=== PATIENT | female | born 1965 | race Caucasian/White ===

== ENCOUNTER 2023-02-13 11:56 | Inpatient (IN) | payer BC ==
[2023-02-13] MEDS ORDERED: Iopamidol 755 Mg/ML 100 ML Bottle IVPUSH ONE (12:10)
[2023-02-13 12:29] LABS: BASOPHILS ABSOLUTE AUTO 0.01 10^3/uL (0.00-0.50); BASOPHILS PERCENT AUTO 0.1 % (0-1); EOSINOPHILS ABSOLUTE AUTO 0.02 10^3/uL (0.00-1.50); EOSINOPHILS PERCENT AUTO 0.2 % (0-6); HEMATOCRIT 35.5 % (37.0-47.0); HEMOGLOBIN 12.1 g/dL (12.0-16.0); IMMATURE GRAN ABSOLUTE AUTO 0.03 10^3/uL (0.00-0.49); IMMATURE GRAN PERCENT AUTO 0.3 % (0.0-4.9); LYMPHOCYTES ABSOLUTE AUTO 1.94 10^3/uL (0.60-5.00); LYMPHOCYTES PERCENT AUTO 19.3 % (24-44); MEAN CORPUSCULAR HEMOGLOBIN 31.8 pg (27.0-32.0); MEAN CORPUSCULAR HGB CONC 34.1 g/dL (32.0-36.0); MEAN CORPUSCULAR VOLUME 93.4 fL (83.0-97.0); MONOCYTES ABSOLUTE AUTO 0.87 10^3/uL (0.00-1.50); MONOCYTES PERCENT AUTO 8.6 % (0-10); NEUTROPHILS PERCENT AUTO 71.5 % (41-71); PLATELET COUNT,PLT 268 10^3/uL (150-400); WHITE BLOOD CELL COUNT,WBC 10.1 10^3/uL (4.0-11.0)
[2023-02-13 12:45] LABS: ALANINE AMINOTRANSFERASE,ALT 64 U/L (12-78); ALBUMIN 3.5 g/dL (3.4-5.0); ALKALINE PHOSPHATASE 122 U/L (46-116); ASPARTATE AMNIOTRANSFERASE,AST 26 U/L (15-37); BILIRUBIN TOTAL 0.4 mg/dL (0.0-1.0); BLOOD UREA NITROGEN,BUN 9 mg/dL (7-18); C-REACTIVE PROTEIN 23.94 mg/dL (<=0.50); CALCIUM 8.9 mg/dL (8.4-10.1); CARBON DIOXIDE,CO2 30 mmol/L (21-32); CHLORIDE,CL 100 mEq/L (98-106); CREATININE 0.9 mg/dL (0.6-1.0); ESTIMATED GFR 75 mL/min (>=60); GLUCOSE RANDOM 95 mg/dL (75-99); LACTIC ACID 0.6 mmol/L (0.4-2.0); PROTEIN TOTAL,TP 7.6 g/dL (6.4-8.2); SODIUM,NA 140 mEq/L (136-145)
[2023-02-13] MEDS ORDERED: VANCOmycin 1.5 GM/300 ML 1.5 GM in Premix Bag 1 BAG IV ONE (13:10)
[2023-02-13] MEDS ORDERED: Acetaminophen 325 MG Tab PO PRN (17:18)
[2023-02-13] MEDS ORDERED: Ondansetron 4 MG/2 ML SDV IV PRN (17:18)
[2023-02-13] MEDS ORDERED: Ondansetron 4 MG Tab.DIS PO PRN (17:18)
[2023-02-13] MEDS ORDERED: Sodium Chloride 0.9% 10 ML Syringe FLUSH PRN (17:18)
[2023-02-13] MEDS ORDERED: Cyclobenzaprine 10 MG Tab PO PRN (17:23)
[2023-02-13] MEDS ORDERED: Potassium Chloride 20 MEQ Tab.ER PO ONE (17:25)
[2023-02-13] MEDS: Ibuprofen 200 MG Tab PO PRN (18:07)
[2023-02-14] MEDS: Levothyroxine 100 MCG Tab PO SCH (06:52)
[2023-02-14] MEDS: Ibuprofen 200 MG Tab PO PRN ×3 (06:55→23:40)
[2023-02-14 07:40] LABS: ALBUMIN 3.1 g/dL (3.4-5.0); BILIRUBIN TOTAL 0.3 mg/dL (0.0-1.0); CALCIUM 8.8 mg/dL (8.4-10.1); CREATININE 0.8 mg/dL (0.6-1.0); EST CRCL DRUG DOSING (CG) 64.95 mL/min; MAGNESIUM 2.2 mg/dL (1.8-2.4); POTASSIUM,K 3.4 mEq/L (3.5-5.0); PROTEIN TOTAL,TP 7.2 g/dL (6.4-8.2)
[2023-02-14 07:43] LABS: BASOPHILS ABSOLUTE AUTO 0.03 10^3/uL (0.00-0.50); BASOPHILS PERCENT AUTO 0.3 % (0-1); EOSINOPHILS ABSOLUTE AUTO 0.07 10^3/uL (0.00-1.50); EOSINOPHILS PERCENT AUTO 0.7 % (0-6); HEMATOCRIT 34.5 % (37.0-47.0); HEMOGLOBIN 11.6 g/dL (12.0-16.0); IMMATURE GRAN ABSOLUTE AUTO 0.03 10^3/uL (0.00-0.49); IMMATURE GRAN PERCENT AUTO 0.3 % (0.0-4.9); LYMPHOCYTES ABSOLUTE AUTO 2.14 10^3/uL (0.60-5.00); LYMPHOCYTES PERCENT AUTO 21.6 % (24-44); MEAN CORPUSCULAR HEMOGLOBIN 31.7 pg (27.0-32.0); MEAN CORPUSCULAR HGB CONC 33.6 g/dL (32.0-36.0); MEAN CORPUSCULAR VOLUME 94.3 fL (83.0-97.0); MONOCYTES ABSOLUTE AUTO 0.68 10^3/uL (0.00-1.50); MONOCYTES PERCENT AUTO 6.9 % (0-10); NEUTROPHILS ABSOLUTE AUTO 6.96 x10^3/uL (1.80-8.00); NEUTROPHILS PERCENT AUTO 70.2 % (41-71); PLATELET COUNT,PLT 306 10^3/uL (150-400); RED BLOOD CELL COUNT 3.66 x10^6/uL (4.00-5.50); WHITE BLOOD CELL COUNT,WBC 9.9 10^3/uL (4.0-11.0)
[2023-02-14] MEDS: Hydroxychloroquine 200 MG Tab PO SCH (08:35)
[2023-02-14] MEDS: Topiramate 100 MG Tab PO SCH (08:35)
[2023-02-14] MEDS: Venlafaxine 75 MG Cap.ER PO SCH (08:37)
[2023-02-14] MEDS: atorvaSTATin 20 MG Tab PO SCH (08:39)
[2023-02-14] MEDS: buPROPion 150 MG Tab.ER PO SCH (08:39)
[2023-02-14] MEDS ORDERED: VANCOmycin 1.75 GM/350 ML 1.75 GM in Premix Bag 1 BAG IV SCH (12:00)
[2023-02-15] MEDS: Acetaminophen/HYDROcodone 325-5 MG Tab PO PRN ×3 (02:03→17:03)
[2023-02-15] MEDS: Levothyroxine 100 MCG Tab PO SCH (06:02)
[2023-02-15 07:48] LABS: BASOPHILS ABSOLUTE AUTO 0.04 10^3/uL (0.00-0.50); BASOPHILS PERCENT AUTO 0.5 % (0-1); EOSINOPHILS ABSOLUTE AUTO 0.22 10^3/uL (0.00-1.50); EOSINOPHILS PERCENT AUTO 2.9 % (0-6); HEMATOCRIT 34.2 % (37.0-47.0); HEMOGLOBIN 11.3 g/dL (12.0-16.0); IMMATURE GRAN ABSOLUTE AUTO 0.05 10^3/uL (0.00-0.49); IMMATURE GRAN PERCENT AUTO 0.7 % (0.0-4.9); LYMPHOCYTES ABSOLUTE AUTO 2.16 10^3/uL (0.60-5.00); LYMPHOCYTES PERCENT AUTO 28.8 % (24-44); MEAN CORPUSCULAR HEMOGLOBIN 31.3 pg (27.0-32.0); MEAN CORPUSCULAR VOLUME 94.7 fL (83.0-97.0); MONOCYTES ABSOLUTE AUTO 0.63 10^3/uL (0.00-1.50); MONOCYTES PERCENT AUTO 8.4 % (0-10); NEUTROPHILS ABSOLUTE AUTO 4.41 x10^3/uL (1.80-8.00); NEUTROPHILS PERCENT AUTO 58.7 % (41-71); PLATELET COUNT,PLT 338 10^3/uL (150-400); RED BLOOD CELL COUNT 3.61 x10^6/uL (4.00-5.50); WHITE BLOOD CELL COUNT,WBC 7.5 10^3/uL (4.0-11.0)
[2023-02-15] MEDS: Venlafaxine 75 MG Cap.ER PO SCH (07:52)
[2023-02-15] MEDS: Topiramate 100 MG Tab PO SCH (07:52)
[2023-02-15] MEDS: atorvaSTATin 20 MG Tab PO SCH (07:52)
[2023-02-15] MEDS: buPROPion 150 MG Tab.ER PO SCH (07:52)
[2023-02-15] MEDS: Hydroxychloroquine 200 MG Tab PO SCH (07:52)
[2023-02-15 08:06] LABS: ALBUMIN 3.1 g/dL (3.4-5.0); BILIRUBIN TOTAL 0.3 mg/dL (0.0-1.0); CALCIUM 9.1 mg/dL (8.4-10.1); CREATININE 0.8 mg/dL (0.6-1.0); EST CRCL DRUG DOSING (CG) 64.95 mL/min; POTASSIUM,K 3.6 mEq/L (3.5-5.0); PROTEIN TOTAL,TP 7.1 g/dL (6.4-8.2)
[2023-02-15] MEDS: VANCOmycin 2 GM/400 ML 2 GM in Premix Bag 1 BAG IV SCH (12:01)
[2023-02-16] MEDS: Acetaminophen/HYDROcodone 325-5 MG Tab PO PRN (00:03)
[2023-02-16] MEDS: Levothyroxine 100 MCG Tab PO SCH (06:03)
[2023-02-16] MEDS: atorvaSTATin 20 MG Tab PO SCH (07:19)
[2023-02-16] MEDS: buPROPion 150 MG Tab.ER PO SCH (07:19)
[2023-02-16] MEDS: Venlafaxine 75 MG Cap.ER PO SCH (07:19)
[2023-02-16] MEDS: Topiramate 100 MG Tab PO SCH (07:19)
[2023-02-16] MEDS: Hydroxychloroquine 200 MG Tab PO SCH (07:19)
[2023-02-16 08:00] LABS: BASOPHILS ABSOLUTE AUTO 0.04 10^3/uL (0.00-0.50); BASOPHILS PERCENT AUTO 0.6 % (0-1); EOSINOPHILS ABSOLUTE AUTO 0.21 10^3/uL (0.00-1.50); EOSINOPHILS PERCENT AUTO 3.3 % (0-6); HEMATOCRIT 36.7 % (37.0-47.0); IMMATURE GRAN ABSOLUTE AUTO 0.11 10^3/uL (0.00-0.49); IMMATURE GRAN PERCENT AUTO 1.7 % (0.0-4.9); LYMPHOCYTES ABSOLUTE AUTO 2.21 10^3/uL (0.60-5.00); LYMPHOCYTES PERCENT AUTO 35.1 % (24-44); MEAN CORPUSCULAR HEMOGLOBIN 31.3 pg (27.0-32.0); MEAN CORPUSCULAR HGB CONC 32.7 g/dL (32.0-36.0); MEAN CORPUSCULAR VOLUME 95.8 fL (83.0-97.0); MONOCYTES ABSOLUTE AUTO 0.55 10^3/uL (0.00-1.50); MONOCYTES PERCENT AUTO 8.7 % (0-10); NEUTROPHILS ABSOLUTE AUTO 3.17 x10^3/uL (1.80-8.00); NEUTROPHILS PERCENT AUTO 50.6 % (41-71); PLATELET COUNT,PLT 414 10^3/uL (150-400); RED BLOOD CELL COUNT 3.83 x10^6/uL (4.00-5.50); WHITE BLOOD CELL COUNT,WBC 6.3 10^3/uL (4.0-11.0)
[2023-02-16 08:23] LABS: ALBUMIN 3.3 g/dL (3.4-5.0); BILIRUBIN TOTAL 0.2 mg/dL (0.0-1.0); CALCIUM 9.3 mg/dL (8.4-10.1); CREATININE 0.8 mg/dL (0.6-1.0); EST CRCL DRUG DOSING (CG) 64.95 mL/min; POTASSIUM,K 4.3 mEq/L (3.5-5.0); PROTEIN TOTAL,TP 7.5 g/dL (6.4-8.2)
[2023-02-16] MEDS: VANCOmycin 2 GM/400 ML 2 GM in Premix Bag 1 BAG IV SCH (11:30)
[2023-02-17] MEDS: Levothyroxine 100 MCG Tab PO SCH (06:39)
[2023-02-17] MEDS: Topiramate 100 MG Tab PO SCH (07:19)
[2023-02-17] MEDS: atorvaSTATin 20 MG Tab PO SCH (07:20)
[2023-02-17] MEDS: Venlafaxine 75 MG Cap.ER PO SCH (07:20)
[2023-02-17] MEDS: buPROPion 150 MG Tab.ER PO SCH (07:20)
[2023-02-17] MEDS: Hydroxychloroquine 200 MG Tab PO SCH (07:20)
[2023-02-17 07:47] LABS: BASOPHILS ABSOLUTE AUTO 0.03 10^3/uL (0.00-0.50); BASOPHILS PERCENT AUTO 0.5 % (0-1); EOSINOPHILS ABSOLUTE AUTO 0.18 10^3/uL (0.00-1.50); EOSINOPHILS PERCENT AUTO 2.8 % (0-6); HEMATOCRIT 36.1 % (37.0-47.0); IMMATURE GRAN ABSOLUTE AUTO 0.26 10^3/uL (0.00-0.49); LYMPHOCYTES PERCENT AUTO 34.1 % (24-44); MEAN CORPUSCULAR HEMOGLOBIN 31.3 pg (27.0-32.0); MEAN CORPUSCULAR HGB CONC 33.2 g/dL (32.0-36.0); MEAN CORPUSCULAR VOLUME 94.3 fL (83.0-97.0); MONOCYTES ABSOLUTE AUTO 0.62 10^3/uL (0.00-1.50); MONOCYTES PERCENT AUTO 9.6 % (0-10); NEUTROPHILS ABSOLUTE AUTO 3.16 x10^3/uL (1.80-8.00); PLATELET COUNT,PLT 431 10^3/uL (150-400); RED BLOOD CELL COUNT 3.83 x10^6/uL (4.00-5.50); WHITE BLOOD CELL COUNT,WBC 6.5 10^3/uL (4.0-11.0)
[2023-02-17 08:05] LABS: ALBUMIN 3.4 g/dL (3.4-5.0); BILIRUBIN TOTAL 0.2 mg/dL (0.0-1.0); C-REACTIVE PROTEIN 3.01 mg/dL (<=0.50); CALCIUM 9.3 mg/dL (8.4-10.1); CREATININE 0.8 mg/dL (0.6-1.0); EST CRCL DRUG DOSING (CG) 64.95 mL/min; POTASSIUM,K 4.2 mEq/L (3.5-5.0); PROTEIN TOTAL,TP 7.6 g/dL (6.4-8.2)
[2023-02-17] MEDS ORDERED: Lidocaine 1% 5 ML VIAL INJECT ONE (10:25)
[2023-02-17] MEDS ORDERED: Take Home: Sulfamethoxazole/Trimethoprim 800-160 MG Tab, 6 Tab Pack PO ONE (11:06)
== END 2023-02-17 11:55 | disposition home or self-care (01) | DRG 364 ==
LOC: UNDOADMIN 11:56 → CC.MS 11:56
PROVIDERS: ADMIT Nurse Practitioner Family; ATTEND Nurse Practitioner Family
PROC: 0J910ZZ Drainage of Face Subcutaneous Tissue and Fascia, Open Approach (ICD-10-PCS; principal; 2023-02-17)
DX: L03.211 Cellulitis of face (principal); E78.00 Pure hypercholesterolemia, unspecified; E03.9 Hypothyroidism, unspecified; G43.909 Migraine, unspecified, not intractable, without status migrainosus; E87.6 Hypokalemia; E05.00 Thyrotoxicosis with diffuse goiter without thyrotoxic crisis or storm; Z90.710 Acquired absence of both cervix and uterus; Z90.10 Acquired absence of unspecified breast and nipple; Z88.1 Allergy status to other antibiotic agents; Z91.013 Allergy to seafood; Z79.899 Other long term (current) drug therapy; Z79.890 Hormone replacement therapy
CPT/HCPCS: 36415; 70487; 80053; 80202; 83605; 83735; 85025; 86140; 87040; 87070; 87077; 87186; 99223; 99232; 99233; 99239; A9270-GY; J3370; J3490; Q9967